=== PATIENT | female | born 1995 | race Caucasian/White ===

== ENCOUNTER → 2016-02-18 | Outpatient (REF) | payer OTHER | LOC: M SFHCLERA 17:47 | PROVIDERS: ATTEND Physician Assistant | DX: R30.0 Dysuria (principal) ==

== ENCOUNTER → 2016-08-04 | Outpatient (CLI) | payer OTHER ==
--- NOTE | 2016-08-04 15:19 | REP ---
Clinical: Left flank pain. Technique: Single supine view of the abdomen and pelvis. Findings: No definite urinary tract calcifications are appreciated. 2 mm calcification in the left stacy pelvis stable compared to CT dated 2014 and compatible with phlebolith. Bowel gas pattern is nonspecific. No organomegaly. Skeletal structures intact. Impression: Limited evaluation of the urinary tract system. No obvious pathology. Signed by Gerry Elder MD 08/04/2016 03:10 P
== END ==
LOC: M LRY 14:50
PROVIDERS: ATTEND Nurse Practitioner Family
DX: R10.9 Unspecified abdominal pain (principal)
CPT/HCPCS: 74000; 87086; 87491; 87591; 96372; G0463; J1885

== ENCOUNTER → 2016-08-04 | Outpatient (REF) | payer OTHER | LOC: M SFHCLERA 14:21 | PROVIDERS: ATTEND Nurse Practitioner Family | DX: R10.9 Unspecified abdominal pain (principal) ==

== ENCOUNTER → 2017-04-19 | Outpatient (REF) | payer OTHER | LOC: M SFHCLERA 12:51 | DX: R30.0 Dysuria (principal) ==